=== PATIENT | female | born 1980 | race American Indian/Alaskan Native ===

== ENCOUNTER 2020-05-26 12:31 | Emergency (ER) | payer SELFPAY ==
[2020-05-26 12:40] VITALS: BP 128/87
[2020-05-26] MEDS ORDERED: DIPHtheria,PERTUSSIS(ACELL),TETANUS VACCINE/PF 0.5 ML VIAL IM ONE (13:03)
--- NOTE | 2020-05-26 13:03 | Emergency Department Report ---
Upper Extremity - HPI Chief Complaint: Wound/Laceration Stated Complaint: CUT FINGER Time Seen by Provider: 05/26/20 12:40 Upper Extremity: Right Index Finger (laceration, distal finger from box toe maker ) Occurred When: Today Severity: mild Symptoms: Yes Pain with Movement, Yes Laceration or Abrasion, No Deformity, No Limited Range of Movement, No Numbness, No Weakness, No Swelling, No Bruising/Ecchymosis Other History: 39 yr old female who is right hand dominant presents to ED with c/o laceration to distal aspect of right index. She states she was cutting a box using box toe maker when she accidentally cut her finger. SHe states this occurred around 12:15. She reports soreness to finger and bleeding but she reports no other symptoms at this time. ED Review of Systems ROS: Stated complaint: CUT FINGER Other details as noted in HPI Comment: All other systems reviewed and negative Skin: other (Laceration right index finger ) ED Past Medical Hx - Past Medical History Hx Hypertension: Yes - Surgical History Past Surgical History?: No - Medications Home Medications: Home Medications Medication Instructions Recorded Confirmed Last Taken Type Ibuprofen [Motrin] 600 mg PO Q8H PRN #30 tablet 05/26/20 Unknown Rx Upper Extremity Exam - Exam General: Vital signs noted. No distress. Alert and acting appropriately. Head and Torso: No HEENT Abnormality, No Neck Tenderness, No Chest/Lungs Abnormality, No Abdominal Tenderness, No Back Tenderness Shoulder Exam: Yes Normal Range of Motion in Shoulder, No Shoulder Tenderness, No Clavicle Tenderness, No Shoulder Deformity, No AC Joint Tenderness Forearm: No Forearm Tenderness, No Forearm Deformity, No Pain with Pronation, No Pain with Supination Wrist: Yes Normal ROM in Wrist, No Wrist Tenderness, No Wrist Deformity, No Snuffbox Tenderness, No Pain with Axial Thumb Compression Hand: Yes Digit Tenderness (Mild distal right index finger mainly around wound), Yes Normal ROM in Digit(s), No Hand Tenderness, No Hand Deformity, No Digit(s) Deformity, No Tendon Dysfunction CMS Exam: Yes Broken Skin (Very superficial 1cm laceration noted distal aspect of right index finger. +mild active bleeding. Cap refill nl, sensation intact. ), Yes Normal Distal Pulses, Yes Normal Capillary Refill, Yes Normal Distal Sensation ED Course Vital Signs 05/26/20 05/26/20 12:38 12:39 Temperature 98.0 F Pulse Rate 86 Respiratory 18 Rate Blood Pressure 128/87 O2 Sat by Pulse 100 Oximetry ED Medical Decision Making - Medical Decision Making Patient presented to the ER after accidentally cutting her right index finger using a box toe maker at work. Patient has a very superficial 1 cm linear laceration to the distal aspect of her right index finger. Wound edges are very well approximated. No indication for suture repair at this time. Bleeding controlled with pressure. n/v intact right finger. Tetanus updated in the ER today. Treatment plan and wound care discussed with patient. Expressed understanding of instructions and agree with plan. Patient was stable at time of discharge. Critical care attestation.: If time is entered above; I have spent that time in minutes in the direct care of this critically ill patient, excluding procedure time. ED Disposition Clinical Impression: Finger laceration Disposition: TO HOME OR SELFCARE Is pt being admited?: No Does the pt Need Aspirin: No Condition: Stable Instructions: Nonsutured Laceration Care Additional Instructions: Keep the pressure dressing on for the next 24 hours. After you can change the dressings daily. Keep the wound clean with soap and water. Dry well and apply a small amount of Neosporin after each cleaning. Do not use peroxide or alcohol. Wound should heal in the next 7 days. Return to the ER if there is any signs or symptoms of infection such as pus drainage, increasing pain, redness or swelling. Prescriptions: Ibuprofen [Motrin] 600 mg PO Q8H PRN #30 tablet PRN Reason: Pain Referrals: PRIMARY CARE, [Referring] - 3-5 Days Forms: Work/School Release Form(ED) Time of Disposition: 13:10
== END 2020-05-26 13:22 | disposition home or self-care (01) ==
LOC: ED 12:31
DX: S61.210A Laceration without foreign body of right index finger without damage to nail, initial encounter (principal); I10 Essential (primary) hypertension; Z79.1 Long term (current) use of non-steroidal anti-inflammatories (NSAID); W26.9XXA Contact with unspecified sharp object(s), initial encounter; Y93.89 Activity, other specified; Y92.89 Other specified places as the place of occurrence of the external cause; Y99.8 Other external cause status
CPT/HCPCS: 90471; 90715; 99281